=== PATIENT | female | born 1990 | race Caucasian/White ===

== ENCOUNTER 2018-09-16 14:22 | Emergency (ER) | payer OTHER ==
[2018-09-16] MEDS ORDERED: Lidocaine 1% 20 ML MDV ONE (14:51)
[2018-09-16] MEDS ORDERED: cefTRIAXone 1 GM Vial IM ONE (14:58)
--- NOTE | 2018-09-16 15:01 | EDM.PDOC ---
ED HPI GENERAL MEDICAL PROBLEM - General Chief Complaint: ENT Problem Stated Complaint: sore throat Time Seen by Provider: 09/16/18 14:45 Source of Information: Reports: Patient History Limitations: Reports: No Limitations - History of Present Illness INITIAL COMMENTS - FREE TEXT/NARRATIVE: Patient presents today with a 4 day history of a sore throat. Notes has gotten worse over the last 24 hours. She denies fever. No sinus pressure. Does state she has ear pain but wonders if radiation of the pain from her throat. No cough. Odynophagia. Difficult to eat or drink due to the discomfort. Onset: Gradual Duration: Day(s): Location: Reports: Head Quality: Reports: Burning Severity: Moderate Worsens with: Reports: Eating Associated Symptoms: Denies: Chest Pain, Cough, Diaphoresis, Fever/Chills, Loss of Appetite, Nausea/Vomiting, Shortness of Breath Throat Pain Score (Numeric/FACES): 8 - Related Data Allergies Allergy/AdvReac Type Severity Reaction Status Date / Time No Known Allergies Allergy Verified 09/16/18 14:28 Home Meds: Home Meds Norelgestromin/Ethin.Estradiol [Xulane Patch] 1 patch TD Q7D 09/16/18 [History] Past Medical History - Past Health History Medical/Surgical History: Denies Medical/Surgical History - Past Surgical History Female Surgical History: Reports: Section Social & Family History - Tobacco Use Smoking Status *Q: Never Smoker - Caffeine Use Caffeine Use: Reports: None - Recreational Drug Use Recreational Drug Use: No ED ROS ENT - Review of Systems Review Of Systems: See Below Constitutional: Denies: Fever, Chills, Malaise, Weakness, Decreased Appetite HEENT: Reports: Ear Pain, Throat Pain, Throat Swelling. Denies: Ear Discharge, Rhinitis, Sinus Problem Respiratory: Denies: Shortness of Breath, Cough Cardiovascular: Denies: Chest Pain, Edema, Lightheadedness Endocrine: Denies: Fatigue GI/Abdominal: Denies: Abdominal Pain, Nausea, Vomiting : Reports: No Symptoms Musculoskeletal: Reports: No Symptoms Skin: Reports: No Symptoms Neurological: Reports: No Symptoms ED EXAM, ENT - Physical Exam Exam: See Below Exam Limited By: No Limitations General Appearance: Alert, WD/WN, No Apparent Distress Ears: Normal External Exam, Normal TMs Nose: Normal Inspection, Normal Mucousa, No Blood Mouth/Throat: Pharyngeal Erythema, Tonsillar Erythema, Tonsillar Exudates, Tonsillar Swelling Head: Normocephalic Neck: Lymphadenopathy (L), Lymphadenopathy (R) Respiratory/Chest: No Respiratory Distress, Lungs Clear, Normal Breath Sounds Cardiovascular: Regular Rate, Rhythm Extremities: Normal Inspection, Normal Capillary Refill Neurological: Alert, Oriented Skin: Warm, Dry Course - Vital Signs Last Recorded V/S: Last Vital Signs Temp 97.3 F 09/16/18 14:22 Pulse 96 09/16/18 14:22 Resp 18 09/16/18 14:22 BP 132/76 09/16/18 14:22 Pulse Ox 96 09/16/18 14:22 - Orders/Labs/Meds Meds: Medications Discontinued Medications Generic Name Dose Route Start Last Admin Trade Name Sofie PRN Reason Stop Dose Admin Ceftriaxone Sodium 1 gm 09/16/18 14:58 Rocephin IM 09/16/18 14:59 ONETIME ONE Departure - Departure Time of Disposition: 15:00 Disposition: Home, Self-Care 01 Condition: Good Clinical Impression: Tonsillitis - Discharge Information Referrals: PCP,None [Primary Care Provider] - Forms: ED Department Discharge Additional Instructions: 1. Push fluids 2. Alternate tylenol and ibuprofen for fever or discomfort 3. Augmentin 875 mg twice a day for 10 days 4. Cepacol lozenges for discomfort 5. Follow up with your primary care provider if ongoing concerns.
[2018-09-16] MEDS ORDERED: Lidocaine 1% 20 ML MDV INJECT ONE (15:03)
== END 2018-09-16 15:11 | disposition home or self-care (01) ==
LOC: CC.ED 14:22
DX: J03.90 Acute tonsillitis, unspecified (principal)
CPT/HCPCS: 96372; 99282; J0696